=== PATIENT | female | born 1980 | race American Indian/Alaskan Native ===

== ENCOUNTER 2020-07-20 11:22 | Emergency (ER) | payer OTHER, MEDICAID ==
[2020-07-20 11:31] VITALS: BP 117/82
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
== END 2020-07-20 13:30 | disposition home or self-care (01) ==
LOC: ED 11:22
DX: S62.307A Unspecified fracture of fifth metacarpal bone, left hand, initial encounter for closed fracture (principal); T07.XXXA Unspecified multiple injuries, initial encounter; V49.49XA Driver injured in collision with other motor vehicles in traffic accident, initial encounter; Y93.89 Activity, other specified; Y92.488 Other paved roadways as the place of occurrence of the external cause; Y99.8 Other external cause status
CPT/HCPCS: 99283